=== PATIENT | female | born 1980 | race Native Hawaiian/Other Pacific Islander ===

== ENCOUNTER 2017-12-08 11:26 | Emergency (ER) | payer MEDICAID ==
[2017-12-08 14:01] LABS: BASO # 0.1 K/uL (0.0-0.2); BASO % 0.8 % (0.0-2.0); EOS # 0.3 K/uL (0.0-0.7); EOS % 3.3 % (0.0-4.0); HEMOGLOBIN 12.5 g/dL (12.0-16.0); LYMPH # 2.5 K/uL (1.0-4.3); LYMPH % 27.3 % (20.0-40.0); MEAN CORPUSCULAR HEMOGLOBIN 27.4 pg (27.0-31.0); MEAN CORPUSCULAR HGB CONC 32.6 g/dL (33.0-37.0); MEAN PLATELET VOLUME 10.8 fl (7.2-11.7); MONO # 0.5 K/uL (0.0-0.8); MONO % 5.8 % (0.0-10.0); NEUT # 5.8 K/uL (1.8-7.0); NEUT % 62.8 % (50.0-75.0); NRBC % 0.2 % (0.0-0.0); RBC 4.56 Mil/uL (3.80-5.20); RED CELL DISTRIBUTION WIDTH 12.6 % (11.5-14.5); WHITE BLOOD COUNT 9.2 K/uL (4.8-10.8)
[2017-12-08 14:11] LABS: SQUAMOUS EPITHIAL 1 /hpf (0-5); URINE BACTERIA RARE (<OCC); URINE BILIRUBIN NEGATIVE (NEGATIVE); URINE BLOOD NEGATIVE (NEGATIVE); URINE CLARITY CLEAR (Clear); URINE COLOR COLORLESS (YELLOW); URINE GLUCOSE (UA) NEG (Normal); URINE LEUKOCYTE ESTERASE NEG Leu/uL (Negative); URINE NITRATE NEGATIVE (NEGATIVE); URINE PROTEIN NEGATIVE (NEGATIVE); URINE UROBILINOGEN 0.2-1.0 mg/dL (0.2-1.0)
[2017-12-08 14:15] LABS: ALB/GLOB RATIO 1.2 (1.0-2.1); ALBUMIN 4.3 g/dL (3.5-5.0); ALT/SGPT 46 U/L (9-52); AST/SGOT 31 U/L (14-36); BLOOD UREA NITROGEN 13 mg/dl (7-17); CALCIUM 9.9 mg/dL (8.4-10.2); GFR AFRICAN-AMERICAN > 60; GFR NON-AFRICAN AMERICAN > 60
--- NOTE | 2017-12-08 14:38 | CT ---
PROCEDURE: CT Cervical Spine without contrast HISTORY: Posttraumatic neck pain COMPARISON: 07/17/2016 CT cervical spine TECHNIQUE: Axial computed tomography images were obtained of the cervical spine without the use of intravenous contrast. Coronal and sagittal reformatted images were created and reviewed. Radiation dose: Total exam DLP = 695.28 mGy-cm. This CT exam was performed using one or more of the following dose reduction techniques: Automated exposure control, adjustment of the mA and/or kV according to patient size, and/or use of iterative reconstruction technique. FINDINGS: VERTEBRAE: No fracture. Normal alignment. No destructive bony lesion. Reversal of the anatomic lordosis with kyphosis mild in degree. . DISCS/SPINAL CANAL/NEURAL FORAMINA: No significant central canal or neural foraminal stenosis. Discs heights are grossly preserved. PARASPINAL SOFT TISSUES: Unremarkable. OTHER FINDINGS: None. IMPRESSION: Mild kyphosis. No evidence of vertebral body fracture, jumped or locked facet, subluxation or dislocation.
--- NOTE | 2017-12-08 14:40 | CT ---
PROCEDURE: CT HEAD WITHOUT CONTRAST. HISTORY: r/o ICH COMPARISON: None available. TECHNIQUE: Axial computed tomography images were obtained through the head/brain without intravenous contrast. Radiation dose: Total exam DLP = 995.05 mGy-cm. This CT exam was performed using one or more of the following dose reduction techniques: Automated exposure control, adjustment of the mA and/or kV according to patient size, and/or use of iterative reconstruction technique. FINDINGS: HEMORRHAGE: No intracranial hemorrhage. BRAIN: No mass effect or edema. The rubio-white matter differentiation appears intact. VENTRICLES: No hydrocephalus. CALVARIUM: Unremarkable. PARANASAL SINUSES: Unremarkable as visualized. No significant inflammatory changes. MASTOID AIR CELLS: Unremarkable as visualized. No inflammatory changes. OTHER FINDINGS: None. IMPRESSION: No acute intracranial pathology identified.
--- NOTE | 2017-12-08 16:50 | ED PDOC ---
HPI: General Adult Time Seen by Provider: 12/08/17 12:34 Chief Complaint (Nursing): Dizziness/Lightheaded Chief Complaint (Provider): dizziness, neck pain History Per: Patient History/Exam Limitations: no limitations Onset/Duration Of Symptoms: Days (3) Current Symptoms Are (Timing): Still Present Severity: Moderate Recently: Treated By A Physician Additional Complaint(s): 37yo female c/o dizziness and occipital headache. Dizziness described as room spinning, associated with neck /occipital scalp discomfort. Denies fever, light sensitivity, weakness, syncope, chest pain or SOB. Has mild cough this week but no myalgia or sore throat. Has had similar symptoms in past for which has seen in ED and PMD Dr Yang- Rx naprosyn and flexeril which she discontinued due to somnolence. No MRI imaging or neurology eval to date. Past Medical History Reviewed: Historical Data, Nursing Documentation, Vital Signs Vital Signs: Last Vital Signs Temp 98.5 F 12/08/17 17:01 Pulse 77 12/08/17 17:01 Resp 16 12/08/17 17:01 BP 121/75 12/08/17 17:01 Pulse Ox 99 12/08/17 17:01 - Medical History PMH: No Chronic Diseases - Surgical History Surgical History: - Family History Family History: States: Unknown Family Hx - Living Arrangements Living Arrangements: With Family - Social History Current smoker - smoking cessation education provided: No - Home Medications Home Medications: Ambulatory Orders Medication Instructions Recorded Albuterol HFA [Ventolin HFA 90 1 - 2 puff IH Q4H PRN #1 bottle 11/10/15 mcg/actuation (8 g)] Moxifloxacin Hydrochloride [Avelox] 400 mg PO DAILY #10 tab 11/10/15 Cyclobenzaprine [Cyclobenzaprine 10 mg PO Q8 PRN #9 tab 07/17/16 HCl] traMADol [Ultram] 50 mg PO TID PRN #12 tab 07/17/16 Ibuprofen [Motrin Tab] 600 mg PO Q6 PRN #15 tab 12/08/17 Meclizine [Meclizine*] 25 mg PO Q6 #30 tab 12/08/17 - Allergies Allergies/Adverse Reactions: Allergies Allergy/AdvReac Type Severity Reaction Status Date / Time No Known Allergies Allergy Verified 11/09/15 23:14 Review of Systems Constitutional: Negative for: Fever, Chills ENT: Negative for: Nose Discharge, Throat Pain Respiratory: Positive for: Cough. Negative for: Shortness of Breath Gastrointestinal: Negative for: Nausea, Vomiting Genitourinary Female: Negative for: Dysuria Musculoskeletal: Positive for: Neck Pain, Shoulder Pain. Negative for: Arm Pain , Back Pain, Leg Pain Skin: Negative for: Rash, Lesions Neurological: Positive for: Dizziness. Negative for: Weakness, Numbness, Seizures, Altered Mental Status, Headache Psych: Negative for: Depression Physical Exam - Reviewed Nursing Documentation Reviewed: Yes Vital Signs Reviewed: Yes - Physical Exam Appears: Positive for: Well, Non-toxic, No Acute Distress Head Exam: Positive for: ATRAUMATIC, NORMAL INSPECTION, NORMOCEPHALIC Skin: Positive for: Normal Color, Warm, DRY Eye Exam: Positive for: EOMI, Normal appearance, PERRL ENT: Positive for: Normal ENT Inspection Neck: Positive for: Normal, Supple, Decreased ROM (+trapezius tenderness). Negative for: Pain On Movement Of Neck Cardiovascular/Chest: Positive for: Regular Rate, Rhythm Respiratory: Positive for: CNT, Normal Breath Sounds Gastrointestinal/Abdominal: Positive for: Normal Exam, Bowel Sounds, Soft Back: Positive for: Normal Inspection Extremity: Positive for: Normal ROM. Negative for: Tenderness DTR - Knee (R): 2+ DTR - Knee (L): 2+ Neurologic/Psych: Positive for: Alert, auto camp attendant II-XII (intact), Oriented, Cerebellar Tests (finger to nose intact gait normal), Gait (normal). Negative for: Motor/Sensory Deficits, Aphasia - Laboratory Results Result Diagrams: 12/08/17 13:45 12/08/17 13:40 Medical Decision Making Medical Decision Making: CT brain/CSpine ordered labs ordered patient refused IV access, IVF, further analgesic or muscle relaxant. labs unremarkable CT imaging Accession No. : [id number] Patient Name / ID : DAYRON HERNANDEZ / [id number] Exam Date : 12/08/2017 14:04:46 ( Approved ) Study Comment : Sex / Age : F / 37Y Creator : Germania Lewis MD Dictator : Germania Lewis MD Signals Intelligence Analysis Manager : Safety Coordinator : Germania Lewis MD Approver2 : Report Date : 12/08/2017 14:36:53 My Comment : PROCEDURE: CT HEAD WITHOUT CONTRAST. HISTORY: r/o ICH COMPARISON: None available. TECHNIQUE: Axial computed tomography images were obtained through the head/brain without intravenous contrast. Radiation dose: Total exam DLP = 995.05 mGy-cm. This CT exam was performed using one or more of the following dose reduction techniques: Automated exposure control, adjustment of the mA and/or kV according to patient size, and/or use of iterative reconstruction technique. FINDINGS: HEMORRHAGE: No intracranial hemorrhage. BRAIN: No mass effect or edema. The rubio-white matter differentiation appears intact. VENTRICLES: No hydrocephalus. CALVARIUM: Unremarkable. PARANASAL SINUSES: Unremarkable as visualized. No significant inflammatory changes. MASTOID AIR CELLS: Unremarkable as visualized. No inflammatory changes. OTHER FINDINGS: None. IMPRESSION: No acute intracranial pathology identified. Accession No. : [id number] Patient Name / ID : DAYRON HERNANDEZ / [id number] Exam Date : 12/08/2017 14:08:25 ( Approved ) Study Comment : Sex / Age : F / 37Y Creator : Bhargav Gutierrez MD Dictator : Bhargav Gutierrez MD Signals Intelligence Analysis Manager : Safety Coordinator : Bhargav Gutierrez MD Approver2 : Report Date : 12/08/2017 14:36:52 My Comment : PROCEDURE: CT Cervical Spine without contrast HISTORY: Posttraumatic neck pain COMPARISON: 07/17/2016 CT cervical spine TECHNIQUE: Axial computed tomography images were obtained of the cervical spine without the use of intravenous contrast. Coronal and sagittal reformatted images were created and reviewed. Radiation dose: Total exam DLP = 695.28 mGy-cm. This CT exam was performed using one or more of the following dose reduction techniques: Automated exposure control, adjustment of the mA and/or kV according to patient size, and/or use of iterative reconstruction technique. FINDINGS: VERTEBRAE: No fracture. Normal alignment. No destructive bony lesion. Reversal of the anatomic lordosis with kyphosis mild in degree. . DISCS/SPINAL CANAL/NEURAL FORAMINA: No significant central canal or neural foraminal stenosis. Discs heights are grossly preserved. PARASPINAL SOFT TISSUES: Unremarkable. OTHER FINDINGS: None. IMPRESSION: Mild kyphosis. No evidence of vertebral body fracture, jumped or locked facet, subluxation or dislocation. -------- Pt remains w some dizziness and further testing, hospital admission/obs possibly recommended based on outcome of other testing (MR/IVF trial, etc) but patient wants to go home. Symptoms appear chronic in nature as occur sporadically for more than a year. Ischemia not ruled out, but pt must leave to attend to children. Referred to neurology, return ER for any worse or new syptoms. Disposition - Clinical Impression Clinical Impression: Dizziness, Headache - Patient ED Disposition Is Patient to be Admitted: No Counseled Patient/Family Regarding: Studies Performed, Diagnosis, Need For Followup - Disposition Referrals: Max Willis MD [Staff Provider] - Disposition: Routine/Home Disposition Time: 16:55 Condition: FAIR Additional Instructions: Return to ER for any worsening or new symptoms. See neurologist for further testing. Take medications as directed. Accession No. : [id number] Patient Name / ID : DAYRON HERNANDEZ / [id number] Exam Date : 12/08/2017 14:04:46 ( Approved ) Study Comment : Sex / Age : F / 37Y Creator : Germania Lewis MD Dictator : Germania Lewis MD Signals Intelligence Analysis Manager : Safety Coordinator : Germania Lewis MD Approver2 : Report Date : 12/08/2017 14:36:53 My Comment : PROCEDURE: CT HEAD WITHOUT CONTRAST. HISTORY: r/o ICH COMPARISON: None available. TECHNIQUE: Axial computed tomography images were obtained through the head/brain without intravenous contrast. Radiation dose: Total exam DLP = 995.05 mGy-cm. This CT exam was performed using one or more of the following dose reduction techniques: Automated exposure control, adjustment of the mA and/or kV according to patient size, and/or use of iterative reconstruction technique. FINDINGS: HEMORRHAGE: No intracranial hemorrhage. BRAIN: No mass effect or edema. The rubio-white matter differentiation appears intact. VENTRICLES: No hydrocephalus. CALVARIUM: Unremarkable. PARANASAL SINUSES: Unremarkable as visualized. No significant inflammatory changes. MASTOID AIR CELLS: Unremarkable as visualized. No inflammatory changes. OTHER FINDINGS: None. IMPRESSION: No acute intracranial pathology identified. Accession No. : [id number] Patient Name / ID : DAYRON HERNANDEZ / [id number] Exam Date : 12/08/2017 14:08:25 ( Approved ) Study Comment : Sex / Age : F / 37Y Creator : Bhargav Gutierrez MD Dictator : Bhargav Gutierrez MD Signals Intelligence Analysis Manager : Safety Coordinator : Bhargav Gutierrez MD Approver2 : Report Date : 12/08/2017 14:36:52 My Comment : PROCEDURE: CT Cervical Spine without contrast HISTORY: Posttraumatic neck pain COMPARISON: 07/17/2016 CT cervical spine TECHNIQUE: Axial computed tomography images were obtained of the cervical spine without the use of intravenous contrast. Coronal and sagittal reformatted images were created and reviewed. Radiation dose: Total exam DLP = 695.28 mGy-cm. This CT exam was performed using one or more of the following dose reduction techniques: Automated exposure control, adjustment of the mA and/or kV according to patient size, and/or use of iterative reconstruction technique. FINDINGS: VERTEBRAE: No fracture. Normal alignment. No destructive bony lesion. Reversal of the anatomic lordosis with kyphosis mild in degree. . DISCS/SPINAL CANAL/NEURAL FORAMINA: No significant central canal or neural foraminal stenosis. Discs heights are grossly preserved. PARASPINAL SOFT TISSUES: Unremarkable. OTHER FINDINGS: None. IMPRESSION: Mild kyphosis. No evidence of vertebral body fracture, jumped or locked facet, subluxation or dislocation. Prescriptions: Ibuprofen [Motrin Tab] 600 mg PO Q6 PRN #15 tab PRN Reason: Pain, Moderate (4-7) Meclizine [Meclizine*] 25 mg PO Q6 #30 tab Instructions: Acute Headache (ED), Dizziness (ED) Forms: [employer] (Mauritian)
[2017-12-08 17:02] VITALS: BP 121/75; PULSE 77; RESP 16; TEMP 98.5; O2SAT 99
--- NOTE | 2017-12-09 09:09 | CARD ---
APPROVED REPORT EKG Measurement Heart [id number] <Conclusion> Normal sinus rhythm Low voltage QRS Abnormal ECG
== END 2017-12-08 17:05 | disposition home or self-care (01) ==
LOC: H.ER 11:26
DX: R42 Dizziness and giddiness (principal); R51 Headache

== ENCOUNTER 2018-03-07 16:18 | Emergency (ER) | payer MEDICAID ==
[2018-03-07 16:29] VITALS: BP 133/82; PULSE 72; RESP 16; TEMP 97.6; O2SAT 100
--- NOTE | 2018-03-07 17:41 | ED PDOC ---
HPI: Skin/Bite Injury Time Seen by Provider: 03/07/18 16:32 Chief Complaint (Nursing): Headache Chief Complaint (Provider): Rash History Per: Patient History/Exam Limitations: no limitations Onset/Duration Of Symptoms: Days (x3) Current Symptoms Are (Timing): Still Present Quality Of Symptoms: Itching Additional Complaint(s): Patient reports painful and itchy red small bumps to the occipital aspect of scalp, increasing in numbers since Wednesday. Patient denies any exposure to potential allergens such as new soaps, lotions, food, or medications. Otherwise : (-) fever, (-) headache, (-) URI symptoms, (-) throat swelling, (-) difficulty breathing. PMD: Roberto Cristina Past Medical History Reviewed: Historical Data, Nursing Documentation, Vital Signs Vital Signs: Last Vital Signs Temp 97.6 F 03/07/18 16:24 Pulse 72 03/07/18 16:24 Resp 16 03/07/18 16:24 BP 133/82 03/07/18 16:24 Pulse Ox 100 03/07/18 17:46 - Surgical History Surgical History: - Family History Family History: States: Unknown Family Hx - Social History Current smoker - smoking cessation education provided: No Alcohol: None Drugs: Denies - Home Medications Home Medications: Ambulatory Orders Medication Instructions Recorded Albuterol HFA [Ventolin HFA 90 1 - 2 puff IH Q4H PRN #1 bottle 11/10/15 mcg/actuation (8 g)] Moxifloxacin Hydrochloride [Avelox] 400 mg PO DAILY #10 tab 11/10/15 Cyclobenzaprine [Cyclobenzaprine 10 mg PO Q8 PRN #9 tab 07/17/16 HCl] traMADol [Ultram] 50 mg PO TID PRN #12 tab 07/17/16 Ibuprofen [Motrin Tab] 600 mg PO Q6 PRN #15 tab 12/08/17 Meclizine [Meclizine*] 25 mg PO Q6 #30 tab 12/08/17 Cephalexin [Keflex] 500 mg PO Q6 #28 capsule 03/07/18 Clotrimazole 1% Cream [Lotrimin 1%] 30 applic EXT BID #1 tube 03/07/18 - Allergies Allergies/Adverse Reactions: Allergies Allergy/AdvReac Type Severity Reaction Status Date / Time No Known Allergies Allergy Verified 11/09/15 23:14 Review of Systems ROS Statement: Except As Marked, All Systems Reviewed And Found Negative Constitutional: Negative for: Fever, Chills ENT: Negative for: Nose Congestion, Throat Pain Respiratory: Negative for: Cough, Shortness of Breath Skin: Positive for: Rash (to posterior head) Neurological: Negative for: Headache Physical Exam - Reviewed Nursing Documentation Reviewed: Yes Vital Signs Reviewed: Yes - Physical Exam Comments: GENERAL APPEARANCE: Patient is awake, alert, oriented x 3, in no acute distress SKIN: (+) multiple erythematous raised small circular lesions to the posterior scalp, with a few to the right side of posterior neck. Otherwise (-) excoriations, (-) drainage, (-) crusting of lesions is present. HENT: (-) conjunctival injection, (-) chemosis. Oropharynx: clear (-) tongue or lip swelling, (-) tonsillar exudates, (-) erythema. Airway: patent (-) stridor, (-) hoarseness. Mucous membranes moist. Nares: Patent (-) rhinorrhea. NECK: (-) lymphadenopathy, (-) tenderness. CARDIOVASCULAR: Normal rate and rhythm. (-) murmur, (-) gallop. CHEST: (-) rales, (-) wheezing, (-) dyspnea, (-) stridor. Breath sounds equal bilaterally. ABDOMEN: Soft. (-) tenderness, (-) distention, (-) HSM. NEURO: Mental status: Patient is alert, oriented, and with normal strength and tone. - ECG O2 Sat by Pulse Oximetry: 100 (RA) Pulse Ox Interpretation: Normal Medical Decision Making Medical Decision Making: Impression: Consider folliculitis, consider molluscum, not tinea capitus Based on history and exam, patient is stable for discharge home. Patient counseled regarding the need to follow up with knitter hand for further evaluation and confirmation of the rash. Prescriptions provided for PO Keflex and Clotrimazole cream. Advised to follow up with dermatology without fail. Advised to take medication as prescribed. Return to the emergency room at any time for any new or worsening symptoms. Patient states she fully agrees with and understands discharge instructions. States that she agrees with the plan and disposition. Verbalized and repeated discharge instructions and plan. I have given the patient opportunity to ask any additional questions. Scribe Attestation: Documented by Rosa Avery, acting as a scribe for Alecia Christian PA-C. Provider Scribe Attestation: All medical record entries made by the Scribe were at my direction and personally dictated by me. I have reviewed the chart and agree that the record accurately reflects my personal performance of the history, physical exam, medical decision making, and the department course for this patient. I have also personally directed, reviewed, and agree with the discharge instructions and disposition. Disposition - Clinical Impression Clinical Impression: Rash - Patient ED Disposition Is Patient to be Admitted: No Counseled Patient/Family Regarding: Diagnosis, Need For Followup, Rx Given - Disposition Referrals: Fitz White MD [Staff Provider] - Disposition: Routine/Home Disposition Time: 16:50 Condition: STABLE Additional Instructions: Thank you for letting us take care of you today. You were treated for nonspecific rash to the scalp. The emergency medical care you received today was directed at your acute symptoms. If you were prescribed any medication, please fill it and take as directed. It may take several days for your symptoms to resolve. Return to the Emergency Department if your symptoms worsen, do not improve, or if you have any other problems. Please call one of the physicians/clinics you have been referred to that are listed on the Patient Visit Information form that is included in your discharge packet. Bring any paperwork you were given at discharge with you along with any medications you are taking to your follow up visit. Our treatment cannot replace ongoing medical care by a primary care provider (PCP) outside of the emergency department. Thank you for allowing the [facility] team to be part of your care today. Prescriptions: Cephalexin [Keflex] 500 mg PO Q6 #28 capsule Clotrimazole 1% Cream [Lotrimin 1%] 30 applic EXT BID #1 tube Instructions: Skin Rash (DC), Folliculitis Forms: [employer] (Ecuadorean) - POA Present On Arrival: None - PA / [employer]IN[employer]ER [employer] / Resident Statement MD/DO has reviewed & agrees with the documentation as recorded.
== END 2018-03-07 17:10 | disposition home or self-care (01) ==
LOC: H.ER 16:18
DX: R21 Rash and other nonspecific skin eruption (principal)